=== PATIENT | male | born 1990 | race Caucasian/White ===

== ENCOUNTER → 2020-10-10 | Outpatient (CLI) | payer BC ==
--- NOTE | 2020-10-11 13:48 | XR ---
EXAMINATION TYPE: XR Hip Complete LT DATE OF EXAM: 10/10/2020 CLINICAL HISTORY: Left leg pain for months. No known injury TECHNIQUE: AP and frogleg views of the left hip are obtained. COMPARISON: None. FINDINGS: There is no acute fracture/dislocation evident in the left hip. The joint space in the le ft hip appears within normal limits. The overlying soft tissue appears unremarkable. IMPRESSION: There is no acute fracture or dislocation in the left hip.
--- NOTE | 2020-10-11 16:00 | XR ---
EXAMINATION TYPE: XR lumbar spine 2 or 3V DATE OF EXAM: 10/10/2020 CLINICAL HISTORY: Left leg pain, sciatic nerve, no known injury TECHNIQUE: Frontal, lateral, and oblique images of the lumbar spine are obtained. COMPARISON: None FINDINGS: 5 non rib bearing lumbar type vertebral bodies. There is endplate deformity of the superior endplate of L3 with mild wedging of approximately 20-30%. There is a deformity of the anterior super ior vertebral body of L4 with well-corticated ossicles are fracture fragments. No significant spondyl olisthesis. Facets are in alignment. Defects of the bilateral pars interarticularis at L5-S1. Paravertebral soft tissues are unremarkable. IMPRESSION: 1. There is a deformity of the superior endplate of the L3 vertebral body with approximately 20% loss of vertebral body height. This may be a chronic deformity or congenital. An MRI would be helpful for further evaluation. There is also a deformity of the anterior superior endplate of the L4 vertebral body with well-corticated ossicles are fracture fragments. Due to lack of known injury, these may be due to congenital deformities. An MRI would be helpful for further evaluation. 2. Defects of the bilateral pars interarticularis at L5-S1.
== END | disposition home or self-care (01) ==
LOC: RADXRMAIN 16:52
PROVIDERS: ATTEND Nurse Practitioner Family
DX: M79.605 Pain in left leg (principal)
CPT/HCPCS: 72100; 73502

== ENCOUNTER → 2020-12-12 | Outpatient (CLI) | payer BC ==
--- NOTE | 2020-12-12 22:35 | MR ---
EXAMINATION TYPE: MR lumbar spine wo con DATE OF EXAM: 12/12/2020 COMPARISON: Lumbar spine x-ray October 10, 2020 HISTORY: Back and left posterior thigh pain x3 month TECHNIQUE: Multiplanar, multisequence imaging of the lumbar spine is performed without IV contrast. FINDINGS: Sagittal images of the lumbar spine redemonstrate prominent Schmorl node superior L3 endpla te and bony fragmentation anterior superior L4 vertebra possible limbus vertebra. Alignment stable an d straightened with slight grade 1 retrolisthesis L3 and L4 redemonstrated. Multilevel disc desiccati on and mild disc space narrowing with relative sparing of L1-L2 level. The conus medullaris is héctor l in position and signal ending superior L1 level. The bone marrow signal intensity is within normal limits. Axial images show T12-L1 and L1-L2 levels to appear within normal limits. Axial images at L2-L3 level show mild broad-based posterior disc protrusion minimally effacing anteri or thecal sac. Patent bilateral neural foramina. Axial images at L3-L4 level show mild/moderate broad disc bulge mildly effacing the anterior thecal s ac and causing mild bilateral anterior inferior neural foraminal narrowing. Axial images at L4-L5 levels with [id number] broad disc bulge effacing the anterior thecal sac and causing kexq-ue-gcmjaowb bilateral neural foraminal narrowing. Axial images at L5-S1 level mild facet arthropathy bilaterally. There is broad-based left paracentral /foraminal disc protrusion seen on axial image 2 and corresponding image 7, this effaces the anterola teral thecal sac and lateral recess and appears to be encroaching on the central left S1 nerve. There is ibez-di-[id number] asymmetric left-sided neural foraminal narrowing. Right-sided neural foramen is patent. Suspected bilateral pars defect L5 level on plain films are less well seen on MRI. Paraspinal muscle bulk is maintained. IMPRESSION: Multilevel degenerative changes as detailed above. Attention to L5-S1 level where most pr ominent disc herniation appears to encroach on the central left S1 nerve likely accounting for patien t's left-sided radiculopathy type symptoms.
== END | disposition home or self-care (01) ==
LOC: RADMRIMAIN 20:04
PROVIDERS: ATTEND Orthopaedic Surgery
DX: M51.17 Intervertebral disc disorders with radiculopathy, lumbosacral region (principal); M47.26 Other spondylosis with radiculopathy, lumbar region
CPT/HCPCS: 72148

== ENCOUNTER 2021-03-21 12:59 | Day surgery (SDC) | payer BC ==
[2021-03-20 11:37] VITALS: BMI 28.7
[~2021-03-21 12:59] MED LIST: LACTATED RINGERS 1,000 ML IV SCH
[2021-03-21 13:15] VITALS: TEMP 97.9
[2021-03-21] MEDS ORDERED: LIDOCAINE 1% (10MG/ML) FOR IV START INTRADERMA ONE (13:30)
[2021-03-21] MEDS ORDERED: IOPAMIDOL M200 10 ML VIAL ONE (13:42)
[2021-03-21] MEDS ORDERED: .fentaNYL (PF) 50 MCG/ML 2 ML AMP ONE (13:42)
[2021-03-21] MEDS ORDERED: MIDAZOLAM 2 MG/2 ML VIAL ONE (13:42)
[2021-03-21] MEDS ORDERED: methylPREDNISolone ACETATE 40 MG/ML 1 ML VIAL ONE (13:42)
--- NOTE | 2021-03-21 13:58 | P.PCN ---
Date of Procedure: 03/21/21 Procedure(s) Performed: PREOPERATIVE DIAGNOSIS: 1-Lumbar radiculopathy . 2-Lumbar degenerative disc disease 3-lumbar spondylosis with lumbar facet arthropathy POSTOPERATIVE DIAGNOSIS: Same as preoperative diagnoses. PROCEDURE 1. Transforaminal epidural steroid injection under fluoroscopic guidance at left L5-S1 level. (Fluoroscopy images stored on file in the radiology Department ) 2. Lumbar epidurogram . ANESTHESIA: Local with 1% lidocaine 3 ml , moderate sedation with intravenous Versed 2 mg and fentanyle 100 micrograms. EBL: Minimal PROCEDURE INDICATION: The patient with low back pain and radiculopathy symptoms unresponsive to conservative treatment. PROCEDURE DESCRIPTION / TECHNIQUE: The patient was seen and identified in the preoperative area. Risks, benefits, complications, and alternatives were discussed with the patient. The patient agreed to proceed with the procedure and signed the consent. IV was started, and vital signs were stable. Patient was taken to the OR and time out was completed. The patient was placed in the prone position on procedure table and a pillow was placed under the abdomen to reduce lumbar lordosis. The lumbosacral area was prepped and draped in the usual sterile fashion. Critical pause was taken. Vital signs were closely monitored during the procedure. Conscious sedation was used during the procedure to decrease patient s anxiety. Using oblique fluoroscopy, the chin of the ``Rik dog at Left L5-S1 level was identified, and the skin and deeper tissues just below was localized with 1% lidocaine. Subsequently, a 22-gauge 3.5-inch spinal needle was advanced under a tunneled view fluoroscopic guidance just underneath the chin of the ``Rik dog at the left L5-S1 Under lateral fluoroscopy, the needle was then advanced to the posterior border of the interforaminal space. After negative aspiration of CSF and blood and with no paresthesias, 1 mL Isovue 200 contrast dye was injected excellent epidurogram and outlining of the nerve root Subsequently, 3 mL of block solution containing 80 mg Depo-Medrol and 2 mL of 0.9% normal saline PF was injected. Needle was removed . At the end of the procedure, skin was cleansed, and bandages were applied. COMPLICATIONS:none DISPOSITION / PLANS: The patient was placed in a supine position and transferred to the recovery area in a stable condition for observation. There was no evidence of lower extremity motor or sensory deficit after the procedure. Patient was discharged from the recovery room after meeting discharge criteria. Home discharge instructions were given to the patient by the staff. The patient was reexamined prior to discharge.
[2021-03-21] MEDS ORDERED: IV FLUID CONTINUATION 1,000 ML IV ONE (14:13)
[2021-03-21 14:16] VITALS: BP 113/70; PULSE 62; RESP 14
--- NOTE | 2021-03-21 17:00 | FL ---
EXAMINATION TYPE: FL guided pain mgmt statistic DATE OF EXAM: 03/21/2021 FLUOROSCOPY Fluoroscopy time of 4 seconds was used during transforaminal injection within the lumbar spine. 1 im age/s document/s the procedure.
== END 2021-03-21 14:51 | disposition home or self-care (01) ==
LOC: ORPAIN 12:59
PROVIDERS: ATTEND Specialist
DX: M51.26 Other intervertebral disc displacement, lumbar region (principal); M51.16 Intervertebral disc disorders with radiculopathy, lumbar region; M47.26 Other spondylosis with radiculopathy, lumbar region
CPT/HCPCS: 64483; J2250; J1030; J3010; Q9966

== ENCOUNTER → 2021-05-15 | Outpatient (CLI) | payer BC ==
--- NOTE | 2021-05-15 08:05 | P.CON ---
Consult Note - . Consult date: 05/15/21 Assessment/Plan:: HISTORY OF PRESENT ILLNESS: 31 year old male with a history of lumbar disc bulges, degenerative changes, and central left S1 encroachment presents today for evaluation status post left TF TONI the L5-S1. Patient states he experienced 100% pain relief on day 1 status post procedure but pain started to return there after. It is currently at a 4 out of 10 in intensity, of an achy and pinchy character with tingling occasionally shooting down the left lower extremity. It is provoked with bending and sitting for periods of 30 minutes or more as patient works in the [employer] industry. Pain is relieved with Motrin, physical therapy, home stretching regimen, repositioning and rest PMH: Denies PSH: Ear tubes during childhood SH: Negative 3. Works in the transportation industry. FH: Paternal grandfatherdiabetes All: NKDA Meds: See list REVIEW OF ORGAN SYSTEMS: CONSTITUTIONAL: No fevers or chills. No recent weight loss. HEENT: No visual acuity loss, eye pain, difficulties with hearing. No nosebleeds. No difficulty swallowing. RESPIRATORY: Denies any troubles with breathing or dyspnea on exertion. CARDIOVASCULAR: Denies any chest pain, palpitations, or recent heart attacks. GASTROINTESTINAL: Denies fatty food intolerance. Has change in bowel habits and gas bloat. GENITOURINARY: Denies any blood in urine. Has increased urinary frequency. NEUROLOGICAL: + numbness and tingling along the distal extremities. No seizure disorders or headaches. MUSCULOSKELETAL: + back pain SKIN: No skin cancer. No rash. PSYCHIATRIC: Denies current depression or suicidal thoughts. ENDOCRINE: Denies current thyroid disorders. Denies any blood sugar glucose intolerance. HEME/LYMPHATIC: Denies any lumps and bumps around the neck. History of deep venous thrombosis. ALLERGY/IMMUNOLOGY: No immunoglobulin therapy. No immune deficiencies. BREAST: Denies current breast lumps, pain or nipple discharge. Physical Examinations : Constitutional : Cooperative , not in acute distress . HEENT: Neck supple. No Lymphadenopathy. Normal thyroid size . Eyes no ptosis , no icterus, no photophobia . Hearing intact. Normal oropharynx. No Thrush. Respiratory : Chest clear to auscultations bilaterally. No wheezing. No rhonchi. Cardiovascular : Regular rate and rhythm , S1 / S2. No S3 . No S4. Gastrointestinal : Abdomen soft. No tenderness. Bowel sounds x 4. No organomegaly . Genitourinary : Deferred. Neurologic : Cranial nerve II to XII intact. No focal neurological deficits. Psychiatric : alert & oriented x 3. Matching mood & appropriate affect. Judgment & insight intact. Lymphatic No Lymphadenopathy. Musculoskeletal : Cervical Spine Motor strength in the deltoid and biceps: Normal right side. Normal Left side Motor strength biceps and the wrist extensors: Normal right side . Normal left side Motor strength in the triceps muscle: Normal right side. Normal left side Deep tendon reflexes: Normal at the biceps. Normal at Brachioradialis. Normal at triceps Cervical facet loading test: positive bilaterally Spurling test: positive bilaterally Neck distraction test: positive bilaterally Winston sign: positive bilaterally Lumbar spine Motor strength lower extremities ,thigh and legs 5/5 Right side , 5/5 Left side Deep tendon reflexes : Normal Knee Jerk. Normal Ankle Jerk Vertebral body tenderness to palpation over the L5 Lumbar facet Loading Test: positive Right / positive Left Range of motion of the lumbar spine Flexion 30 degrees, extension 10 degrees Straight Leg Raise test: Left/ Right positive at degree Nestor test: positive right / positive left. Severe tenderness over the Sacroiliac joint on the Right / Left sides Gaenslen test: positive bilaterally Seated flexion test: positive bilaterally. MRI of the lumbar spine without contrast from 12/12/2020 reviewed. Assessment/ Plan : Recommendation of L TFESI of the L5-S1 #2 Risks, benefits of procedure discussed the patient was understanding Denies aspirin or anticoagulants use All questions answered May consider a third left TFESI or medial branch blocks leading up to our aphasic if necessary I have spent greater than 50 minutes on patient care today. Dr Anglin was available by phone for the evaluation of this patient. The time was used to review the medical records including relevant urine studies and Prescription history (MAPs), review of the available imaging, evaluation and examination of the patient, coordination of care with the medical staff and if applicable referring physicians, as well as creation of the medical record PQRS Measure Charge Sheet PQRS Narrative: Pain Intensity [Lower Back] 3 Hx Alcohol Use (MH) Yes Home Medications: Ambulatory Orders Alpha Lipoic Acid(Dose Unknown 1 tab PO DAILY PRN 03/20/21 Tylenol(Dose Unknown) 1 tab PO DIRECTED PRN 03/20/21
[2021-05-15 08:45] VITALS: BP 145/77; PULSE 85; RESP 18; TEMP 99.3
== END ==
LOC: PNWHC3 07:28
PROVIDERS: ATTEND Physician Assistant Medical
DX: M51.36 Other intervertebral disc degeneration, lumbar region (principal); M99.63 Osseous and subluxation stenosis of intervertebral foramina of lumbar region; M53.3 Sacrococcygeal disorders, not elsewhere classified
CPT/HCPCS: 99211

== ENCOUNTER 2021-06-13 12:33 | Day surgery (SDC) | payer BC ==
[2021-06-12 12:32] VITALS: BMI 59.8
[~2021-06-13 12:33] MED LIST changes: +LIDOCAINE 1% (10MG/ML) FOR IV START INTRADERMA PRN
[2021-06-13 13:04] VITALS: TEMP 97.9
[2021-06-13] MEDS ORDERED: fentaNYL (PF) 50 MCG/ML 2 ML AMP ONE (13:29)
[2021-06-13] MEDS ORDERED: IOPAMIDOL M200 10 ML VIAL ONE (13:29)
[2021-06-13] MEDS ORDERED: methylPREDNISolone ACETATE 40 MG/ML 1 ML VIAL ONE (13:29)
[2021-06-13] MEDS ORDERED: MIDAZOLAM 2 MG/2 ML VIAL ONE (13:29)
--- NOTE | 2021-06-13 13:46 | P.PCN ---
Date of Procedure: 06/13/21 Procedure(s) Performed: PREOPERATIVE DIAGNOSIS: 1-Lumbar radiculopathy . 2-Lumbar degenerative disc disease 3-lumbar spondylosis with lumbar facet arthropathy POSTOPERATIVE DIAGNOSIS: Same as preoperative diagnoses. PROCEDURE 1. Transforaminal epidural steroid injection under fluoroscopic guidance at left L5-S1 level. (Fluoroscopy images stored on file in the radiology Department ) 2. Lumbar epidurogram . ANESTHESIA: Local with 1% lidocaine 3 ml , moderate sedation with intravenous Versed 2 mg and fentanyle 100 micrograms. EBL: Minimal PROCEDURE INDICATION: The patient with low back pain and radiculopathy symptoms unresponsive to conservative treatment. PROCEDURE DESCRIPTION / TECHNIQUE: The patient was seen and identified in the preoperative area. Risks, benefits, complications, and alternatives were discussed with the patient. The patient agreed to proceed with the procedure and signed the consent. IV was started, and vital signs were stable. Patient was taken to the OR and time out was completed. The patient was placed in the prone position on procedure table and a pillow was placed under the abdomen to reduce lumbar lordosis. The lumbosacral area was prepped and draped in the usual sterile fashion. Critical pause was taken. Vital signs were closely monitored during the procedure. Conscious sedation was used during the procedure to decrease patient s anxiety. Using oblique fluoroscopy, the chin of the ``Rik dog at Left L5-S1 level was identified, and the skin and deeper tissues just below was localized with 1% lidocaine. Subsequently, a 22-gauge 3.5-inch spinal needle was advanced under a tunneled view fluoroscopic guidance just underneath the chin of the ``Rik dog at the left L5-S1 Under lateral fluoroscopy, the needle was then advanced to the posterior border of the interforaminal space. After negative aspiration of CSF and blood and with no paresthesias, 1 mL Isovue 200 contrast dye was injected excellent epidurogram and outlining of the nerve root Subsequently, 3 mL of block solution containing 80 mg Depo-Medrol and 2 mL of 0.9% normal saline PF was injected. Needle was removed . At the end of the procedure, skin was cleansed, and bandages were applied. COMPLICATIONS:none DISPOSITION / PLANS: The patient was placed in a supine position and transferred to the recovery area in a stable condition for observation. There was no evidence of lower extremity motor or sensory deficit after the procedure. Patient was discharged from the recovery room after meeting discharge criteria. Home discharge instructions were given to the patient by the staff. The patient was reexamined prior to discharge.
[2021-06-13] MEDS ORDERED: IV FLUID CONTINUATION 1,000 ML IV ONE (13:50)
[2021-06-13 13:54] VITALS: RESP 16
--- NOTE | 2021-06-13 13:55 | FL ---
EXAMINATION TYPE: FL guided pain mgmt statistic DATE OF EXAM: 06/13/2021 HISTORY: Fluoroscopy time 11 seconds of fluoroscopy provided. IMPRESSION: 1. Fluoroscopy time.
[2021-06-13 14:07] VITALS: BP 111/69; PULSE 53
== END 2021-06-13 14:20 | disposition home or self-care (01) ==
LOC: ORPAIN 12:33
PROVIDERS: ATTEND Specialist
DX: M51.16 Intervertebral disc disorders with radiculopathy, lumbar region (principal); M47.26 Other spondylosis with radiculopathy, lumbar region
CPT/HCPCS: 64483; J2250; J1030; J3010; Q9966; 99152

== ENCOUNTER → 2021-07-01 | Outpatient (CLI) | payer BC ==
--- NOTE | 2021-07-01 08:31 | P.PN ---
Subjective Progress Note Date: 07/01/21 Principal diagnosis: A 31 yr old male with a history of severe and chronic low back pain secondary to lumbar degenerative disc diseases and lumbar spondylosis with facet arthropathy presents today for evaluation status post left TF TONI L5-S1 #2. Patient states he experienced 75% pain relief status post procedure. Pain level is currently at 0 out of 10 in intensity but when it is present during driving, pain is dull achy in the lower left aspects of his lumbar spine with occasional radiation of pain down the left lower extremity. Pain is alleviated with injections, ice or heat in the past prior to procedures, 7 sessions of physical therapy since 03/26, home based stretching regimen and walking. Interventional pain procedures completed include L TFESI L5-S1 #2 Patient is currently on DENIES Patient denies any side effects of the medication(s), denies excessive arabella wsiness or sleepiness, denies suicidal ideation and reports that the current pain medication is helping to control the pain and improve activities of daily living. Patient denies any motor or sensory deficits. Patient denies any fever or night sweats, denies any change in the bowel movements or urination. Physical Examination: -Constitutional: Cooperative. Not in acute distress . -HEENT: Neck is supple. No lymphadenopathy. No thyromegaly. Normal thyroid size. Eyes: No ptosis , no icterus, no photophobia. ENT: No auditory deficits. Normal oropharynx. No Thrush. - Respiratory: Chest clear to auscultations bilaterally. No wheezing. No rhonchi. - Cardiovascular: Regular rate and rhythm. S1 / S2 , no S3 , no S4. - Gastrointestinal: Abdomen soft no tenderness. Bowel sounds positive in all four quadrants. No organomegaly. - Genitourinary: Deferred. - Neurologic: Cranial nerve II to XII intact. No focal neurological deficits. - Psychatric: Alert & oriented x 3. Matching mood & appropriate affect. Judgment and insight intact. - Lymphatic: No Lymphadenopathy. - Musculoskeletal: Cervical spine: Muscle bulk/ tone/ strength in the bilateral upper extremities normal. Facet loading test cervical area positive. Lumbar spine: Motor bulk/ tone/ strength lower extremities , thigh and legs : 5/5 Deep tendon reflexes : Normal Knee Jerk. Normal Ankle Jerk . Vertebral body tenderness to palpation over L5 Lumbar Facet Loading Test positive Straight Leg Raise: positive at 30 degrees right side/ left side Gaenslen's Test positive Sacral spine : Severe tenderness over the Sacroiliac joint: right side / left side Range of motion: Flexion of the lumbar spine <60 degrees Range of motion: Extension of the lumbar spine <20 degrees Gaenslen's Test positive Nestor test: positive right side / left side Assessment and plan: Chronic low back pain secondary to lumbar degenerative disc disease , lumbar spondylosis with facet arthropathy without myelopathy Recommendation of repeat left TFESI L5-S1 #3. Risks, benefits of procedure discussed and patient verbalized understanding. Denies anticoagulant use. Denies medical history of diabetes. All patient questions answered MAPS reviewed and it was appropriate. I have spent 31 minutes on patient care today. Dr Anglin was available by phone for the evaluation of this patient. The time was used to review the medical records including relevant urine studies and Prescription history (MAPs), review of the available imaging, evaluation and examination of the patient, coordination of care with the medical staff and if applicable referring physicians, as well as creation of the medical record PQRS Measure Charge Sheet PQRS Narrative: Hx Alcohol Use (MH) Yes Home Medications: Ambulatory Orders No Known Home Medications 06/12/21
[2021-07-01 08:39] VITALS: BP 119/80; PULSE 74; RESP 19; TEMP 98.1
== END ==
LOC: PNWHC3 08:02
PROVIDERS: ATTEND Specialist
DX: G89.29 Other chronic pain (principal); M51.36 Other intervertebral disc degeneration, lumbar region; M47.816 Spondylosis without myelopathy or radiculopathy, lumbar region
CPT/HCPCS: 99211

== ENCOUNTER 2021-08-08 12:47 | Day surgery (SDC) | payer BC ==
[2021-08-07 09:29] VITALS: BMI 26.4
[2021-08-08] MEDS ORDERED: LACTATED RINGERS 1,000 ML IV ONE (13:05)
[2021-08-08 13:08] VITALS: RESP 18; TEMP 97
[2021-08-08] MEDS ORDERED: DEXAMETHASONE SOD PHOSPHATE 10 MG/ML 1 ML VIAL ONE (13:36)
[2021-08-08] MEDS ORDERED: IOPAMIDOL M200 10 ML VIAL ONE (13:36)
[2021-08-08] MEDS ORDERED: fentaNYL (PF) 50 MCG/ML 2 ML AMP ONE (13:36)
[2021-08-08] MEDS ORDERED: MIDAZOLAM 2 MG/2 ML VIAL ONE (13:36)
--- NOTE | 2021-08-08 13:50 | P.PCN ---
Date of Procedure: 08/08/21 Description of Procedure: DESCRIPTION OF PROCEDURE(S): PREOPERATIVE DIAGNOSIS: Lumbar radiculopathy POSTOPERATIVE DIAGNOSIS: Lumbar radiculopathy PROCEDURE 1. Transforaminal epidural steroid injection under fluoroscopic guidance LEFT L5-S1 (fluoroscopy image was saved and stored) 2. Lumbar epidurogram ANESTHESIA: Local with 1% lidocaine 3 ml ; IV sedation with Versed 2 mg and fentanyle 100 micrograms. PROCEDURE INDICATION: The patient with low back pain and radiculopathy symptoms unresponsive to conservative treatment. PROCEDURE DESCRIPTION / TECHNIQUE: The patient was seen and identified in the preoperative area. Risks, benefits, complications, and alternatives were discussed with the patient. The patient agreed to proceed with the procedure and signed the consent. IV was started, and vital signs were stable. Patient was taken to the OR and time out was completed. The patient was placed in the prone position on procedure table and a pillow was placed under the abdomen to reduce lumbar lordosis. The lumbosacral area was prepped and draped in the usual sterile fashion. Vital signs were closely monitored during the procedure. Conscious sedation was used. Using oblique fluoroscopy, the chin of the ``Rik dog at left L5 pedicle and the skin and deeper tissues just below was localized with 1% lidocaine. Subsequently, a 22-gauge 3.5-inch spinal needle was advanced under a tunneled view fluoroscopic guidance just underneath the chin of the ``Rik dog RIGHT L2. Under lateral fluoroscopy, the needle was then advanced to the posterior border of the L5-S1 interforaminal space. After negative aspiration of CSF and blood and with no paresthesias, 1 mL of Omnipaque-240 contrast dye was injected excellent epidurogram and outlining L5 nerve root. Subsequently, of the 5ml solution consisting of 10mg/ml dexamethasone with 4 ml PF normal saline, 5ml injected at L5-S1 space. Needle was removed and skin was cleansed, and bandages were applied. COMPLICATIONS: None COMMENTS: DISPOSITION / PLANS: The patient was placed in a supine position and transferred to the recovery area in a stable condition for observation. There was no evidence of lower extremity motor or sensory deficit after the procedure. Patient was discharged from the recovery room after meeting discharge criteria. Home discharge instructions were given to the patient by the staff. The patient was reexamined prior to discharge. Follow up with Dr. Gann
[2021-08-08] MEDS ORDERED: IV FLUID CONTINUATION 1,000 ML IV ONE ×2 (13:57)
[2021-08-08 13:59] VITALS: BP 123/63; PULSE 60
--- NOTE | 2021-08-08 14:02 | FL ---
EXAMINATION TYPE: FL guided pain mgmt statistic DATE OF EXAM: 08/08/2021 CLINICAL HISTORY: Low back pain. TECHNIQUE: Fluoroscopy. COMPARISON: None. FINDINGS: Fluoroscopic guidance was provided during pain relief procedure performed by Dr. Justice . A total of 5 seconds of fluoroscopic time was utilized during the procedure and 1 spot images are ac quired. Single image acquired shows needle localization off the midline at L5 level. IMPRESSION: As Above.
--- NOTE | 2021-08-23 05:57 | CDI ---
Documentation Clarification Form Date: 08/23/2021 05:52:16 AM From: Luciana Montana Phone: Admit Date: 08/08/2021 12:47:00 PM Patient Name: Isaak Menjivar Visit Number: [id number] Discharge Date: Payor: ALY Justice, Could you please clarify if the anesthesia given was MAC (unconscious sedation) or moderate sedation (conscious sedation)? Please document below line below. Thank you for your time. MTDD
== END 2021-08-08 14:29 | disposition home or self-care (01) ==
LOC: ORPAIN 12:47
PROVIDERS: ATTEND Anesthesiology
DX: M54.16 Radiculopathy, lumbar region (principal); M51.26 Other intervertebral disc displacement, lumbar region
CPT/HCPCS: 64483; J2250; J1100; J3010; Q9966; 99152